=== PATIENT | female | born 1985 | race African-American/Black ===

== ENCOUNTER 2017-03-07 19:49 | Day surgery (SDC) | payer OTHER ==
[2017-03-07 20:14] VITALS: BMI 29.2
[2017-03-07] MEDS ORDERED: SODIUM CHLORIDE 0.9% 1000 ML INFUS.BAG IV ONE (21:28)
--- NOTE | 2017-03-07 21:38 | PDOC ---
History of Present Illness - General Chief Complaint: Vaginal Bleeding Stated Complaint: VAGINAL BLEEDING(11 WEEKS) PREG History Source: Patient Exam Limitations: No Limitations - History of Present Illness Initial Comments: 03/07/17 21:30 Patient is a 31 year old female with who is 10 weeks 5 days by LMP c/o vaginal bleeding and lower abd crampy since this afternoon. States she was upstate at [facility] when the symptoms started EMS was called but she RME because she was too far from home. While on the way she bleed through 5 diapers and was started to feel weak and dizzy and so she stopped at this hospital for care. She has not has any OBS care for this , no US. States having a lot of lower abd crampy pain 03/15. PMD: none PSHX; left oopharectomy ALL: gentamicin' GENERAL/CONSTITUTIONAL: [No fever or chills. No weakness. No weight change.] HEAD, EYES, EARS, NOSE AND THROAT: [No change in vision. No ear pain or discharge. No sore throat.] CARDIOVASCULAR: [No chest pain or shortness of breath.] RESPIRATORY: [No cough, wheezing, or hemoptysis.] GASTROINTESTINAL: [No nausea, vomiting, diarrhea or constipation. No rectal bleeding.] GENITOURINARY: [No dysuria, frequency, or change in urination.] MUSCULOSKELETAL: [No joint or muscle swelling or pain. No neck or back pain.] SKIN AND BREASTS: [No rash or easy bruising.] NEUROLOGIC: [No headache, vertigo, loss of consciousness, or loss of sensation.] PSYCHIATRIC: [No depression or anxiety.] ENDOCRINE: [No increased thirst. No abnormal weight change.] HEMATOLOGIC/LYMPHATIC: [No anemia, easy bleeding, or history of blood clots.] ALLERGIC/IMMUNOLOGIC: [No hives or skin allergy. No latex allergy.] GENERAL: [The patient is awake, alert, and fully oriented, in no acute distress. ] HEAD: [Normal with no signs of trauma.] EYES: [Pupils equal, round and reactive to light, extraocular movements intact, sclera anicteric, conjunctiva pale. ENT: [Ears normal, nares patent, oropharynx clear without exudates. Moist mucous membranes.] NECK: [Normal range of motion, supple without lymphadenopathy, JVD, or masses.] LUNGS: [Breath sounds equal, clear to auscultation bilaterally. No wheezes, and no crackles.] HEART: [Regular rate and rhythm, normal S1 and S2 without murmur, rub.] ABDOMEN: [Soft, (+) tenderness in the lower abd, normoactive bowel sounds. No guarding, no rebound. No masses. PELVIC: normal external genitalia, (+) bleed (+) clots in the vault, 2.5 cm open os EXTREMITIES: [Normal range of motion, no edema. No clubbing or cyanosis. No cords, erythema, or tenderness.] NEUROLOGICAL: [Cranial nerves II through XII grossly intact. Normal speech, normal gait.] PSYCH: [Normal mood, normal affect.] SKIN: [Warm, Dry, (+) pallor, normal turgor, no rashes or lesions noted.] Past History - Past Medical History Allergies/Adverse Reactions: Allergies Allergy/AdvReac Type Severity Reaction Status Date / Time gentamicin Allergy Verified 03/07/17 20:10 Home Medications: Ambulatory Orders NK [No Known Home Medication] 03/07/17 - Psycho/Social/Smoking Cessation Hx Suicidal Ideation: No Smoking History: Former smoker Have you smoked in the past 12 months: Yes If you are a former smoker, when did you quit?: 4 months Information on smoking cessation initiated: No Hx Alcohol Use: No Drug/Substance Use Hx: No *Physical Exam - Vital Signs Last Vital Signs Temp Pulse Resp BP Pulse Ox 98.6 F 71 18 110/83 98 03/07/17 20:10 03/07/17 20:10 03/07/17 20:10 03/07/17 20:10 03/07/17 20:10 ED Treatment Course - LABORATORY CBC & Chemistry Diagram: 03/08/17 01:35 03/07/17 21:30 Medical Decision Making - Medical Decision Making 03/07/17 23:05 Patient is a 31 year old female with who is 10 weeks 5 days by LMP c/o vaginal bleeding and lower abd crampy since this afternoon. She 10 weeks 5 days but has had any OBS care for this . will do US pelvic labs, IVF reassess. 03/07/17 23:48 Patient states had a diaper full of clots in the ED consulted MINERAL ENGINEER Dr. Landeros while waiting for offical US. recommed to give pitocin 20 units in 1 Liter IVF and given Methergine 0.2 IM 03/08/17 00:15 Patient Name: Kandis Maynard This is a preliminary report by imaging water pollution specialist Exam: Transabdominal and endovaginal sonogram and duplex sonography Images: 31 Clinical indication: Vaginal bleeding. Beta-hCG 9085. Status post left oopherectormy. Findings: The uterus is anteverted and measures 8.7 x 4.3 x 5.1 cm on endovaginal images. Nabothian cysts are noted in the cervix. No IUP seen. The right ovary measures 3.5 x 2 x 3.3 cm contains follicles and demonstrates normal arterial flow on color Doppler images. Prominent vessels are noted in the ventral myometrium. The left ovary is not visualized. Impression: Prominent vessels in the ventral myometrium. Otherwise normal appearance of the uterus. No IUP. Normal appearance of the right ovary with normal vascular flow. No adnexal mass or free fluid seen. These findings suggest failed . THIS DOCUMENT HAS BEEN ELECTRONICALLY SIGNED Gamal Mckee M.D. 03/08/2017 00: 11 SAMIA Rosas Please call Imaging Cloth Stock Sorter [phone] ([phone]) with questions will give pain meds Morphine 4 mg IV 0638 re-exam patient os open 2 cm with clots in the vault, blood in the diaper. Nurse states she changed a diaper when she hung up pitocin. case d/w with Dr. Landeros who states that the patient can be discharged with Methergine 0.2mg TID x 3 days, give Ancef 1 gm IV but no antibiotics will repeat the cbc if dropped significantly will hold the patient over for MINERAL ENGINEER. will given Methergine 0.2mg IM Ancef 1 gm IV 03/08/17 06:48 Endorsed to LAUREN Comer pending CBC and reconsult MINERAL ENGINEER if needed. *DC/Admit/Observation/Transfer Diagnosis at time of Disposition: Vaginal bleeding, Complete - Discharge Dispostion Condition at time of disposition: Stable
[2017-03-07 21:46] LABS: BASOPHIL 0.3 % (0-2.0); EOSINOPHIL 0.4 % (0-4.5); MCH 29.5 pg (25.7-33.7); MCHC 32.7 g/dl (32.0-36.0); MEAN CELL VOLUME 90.2 fl (80-96); MEAN PLT VOLUME 9.3 fl (7.5-11.1); NEUTROPHILS 82.5 % (42.8-82.8); PLATELET COUNT 201 K/MM3 (134-434); RDW 13.6 % (11.6-15.6); WHITE BLOOD COUNT 11.2 K/mm3 (4.0-10.0)
[2017-03-07 22:01] LABS: INR 1.13 (0.82-1.09); PROTHROMBIN TIME (PATIENT) 12.5 SEC (9.98-11.88)
[2017-03-07 22:11] LABS: ALBUMIN 3.7 g/dl (3.4-5.0); ANION GAP 12 (8-16); BILIRUBIN,TOTAL 0.2 mg/dL (0.2-1.0); CALCIUM 8.9 mg/dL (8.5-10.1); CO2 21 mmol/L (21-32); CREATININE 0.7 mg/dL (0.55-1.02); GLUCOSE,RANDOM 104 mg/dL (74-106); SGOT/AST 10 U/L (15-37); SGPT/ALT 19 U/L (12-78); TOT PROT 6.7 g/dl (6.4-8.2)
--- NOTE | 2017-03-07 22:12 | PDOC ---
*Physical Exam - Vital Signs Last Vital Signs Temp Pulse Resp BP Pulse Ox 98.6 F 71 18 110/83 98 03/07/17 20:10 03/07/17 20:10 03/07/17 20:10 03/07/17 20:10 03/07/17 20:10 - Physical Exam General Appearance: Yes: Appropriately Dressed Respiratory/Chest: positive: Chest Tender, Lungs Clear, Normal Breath Sounds Cardiovascular: positive: Regular Rhythm, Regular Rate, S1, S2. negative: Edema Gastrointestinal/Abdominal: positive: Normal Bowel Sounds, Tender (suprapubic ttp), Flat, Soft Musculoskeletal: positive: Normal Inspection. negative: CVA Tenderness Integumentary: positive: Normal Color, Dry, Warm Neurologic: positive: Fully Oriented, Alert, Normal Mood/Affect ED Treatment Course - LABORATORY CBC & Chemistry Diagram: 03/07/17 21:30 03/07/17 21:30 - ADDITIONAL ORDERS Additional order review: Laboratory Results 03/07/17 21:30 INR 1.13 03/07/17 21:30 RBC 4.02 MCV 90.2 MCHC 32.7 RDW 13.6 MPV 9.3 Neutrophils % 82.5 Lymphocytes % 12.8 Monocytes % 4.0 Eosinophils % 0.4 Basophils % 0.3 - Medications Given in the ED: ED Medications Discontinued Medications Generic Name Dose Route Start Last Admin Trade Name Brittny PRN Reason Stop Dose Admin Sodium Chloride 1,000 ml 03/07/17 21:28 03/07/17 21:39 Normal Saline - IV 03/07/17 21:29 1,000 ml ONCE ONE Administration Medical Decision Making - Medical Decision Making 03/07/17 22:09 31 yo F at 10 weeks plus few days here wtih c/o vaginal bleeding and cramping. bleeding heavier than a period. also feeling lightheaded. no other complaints. on exam pt awake alert . lungs clear. heart regular. abd soft mild suprapubic tenderness.skin warm and dry. plan r/o miscarriage vs. ectopic. plan tvus. labs. tvus. pt seen and examined, in conjunction with LAUREN Sandoval, agree with assessment and plan. cirilli
[2017-03-07 22:27] LABS: ALK PHOS 79 U/L (45-117)
[2017-03-07] MEDS ORDERED: METHYLERGONOVINE MALEATE 0.2 MG/1 ML AMP IM ONE (23:43)
[2017-03-07] MEDS ORDERED: LACTATED RINGERS SOLUTION 1,000 ML IV STA (23:46)
[2017-03-08] MEDS ORDERED: OXYTOCIN 10 UNITS/ML VIAL ONE ×2 (00:05→16:31)
[2017-03-08] MEDS ORDERED: METHYLERGONOVINE MALEATE 0.2 MG/1 ML AMP ONE ×2 (00:06→06:43)
[2017-03-08] MEDS ORDERED: KETOROLAC TROMETHAMINE 30 MG/1 ML VIAL IVPUSH ONE (00:16)
[2017-03-08] MEDS: OXYTOCIN 10 UNIT/ML 10ML MDV IV ONE ×2 (00:40→16:00)
[2017-03-08] MEDS ORDERED: KETOROLAC TROMETHAMINE 30 MG/1 ML VIAL ONE (00:41)
[2017-03-08 01:43] LABS: MCHC 32.4 g/dl (32.0-36.0); MEAN CELL VOLUME 89.4 fl (80-96); MEAN PLT VOLUME 8.7 fl (7.5-11.1); PLATELET COUNT 180 K/MM3 (134-434); RDW 13.8 % (11.6-15.6); WHITE BLOOD COUNT 13.4 K/mm3 (4.0-10.0)
[2017-03-08] MEDS ORDERED: morphine CARPU-JECT 4 MG/1 ML DISP.SYRIN IVPUSH ONE ×2 (02:23→13:00)
[2017-03-08] MEDS ORDERED: ONDANSETRON 4 MG/2 ML VIAL IVPUSH ONE (02:23)
[2017-03-08] MEDS ORDERED: morphine CARPU-JECT 4 MG/1 ML DISP.SYRIN ONE ×2 (02:27→13:01)
[2017-03-08] MEDS ORDERED: ONDANSETRON 4 MG/2 ML VIAL ONE (02:27)
[2017-03-08] MEDS ORDERED: METHYLERGONOVINE MALEATE 0.2 MG/1 ML AMP IM ONE (06:42)
[2017-03-08] MEDS ORDERED: CEFAZOLIN 1 GM in DEXTROSE 5%-WATER - 50 ML IVPB ONE (06:47)
[2017-03-08] MEDS ORDERED: CEFAZOLIN (PRE-DOCKED) 50 ML IVPB ONE (06:50)
[2017-03-08 08:27] LABS: MCH 29.9 pg (25.7-33.7); MCHC 33.7 g/dl (32.0-36.0); MEAN CELL VOLUME 88.8 fl (80-96); MEAN PLT VOLUME 9.3 fl (7.5-11.1); PLATELET COUNT 167 K/MM3 (134-434); WHITE BLOOD COUNT 13.5 K/mm3 (4.0-10.0)
[2017-03-08] MEDS ORDERED: SODIUM CHLORIDE 1,000 ML IV STA (08:57)
[2017-03-08] MEDS: LORazepam 1 MG TABLET PO ONE ×2 (09:13→09:15)
--- NOTE | 2017-03-08 09:21 | PDOC ---
*Physical Exam - Vital Signs Last Vital Signs Temp Pulse Resp BP Pulse Ox 98.2 F 78 20 94/53 98 03/08/17 07:58 03/08/17 07:58 03/08/17 07:58 03/08/17 09:13 03/08/17 07:58 - Physical Exam General Appearance: Yes: Appropriately Dressed. No: Apparent Distress HEENT: positive: Normal Voice Neck: positive: Supple Respiratory/Chest: negative: Respiratory Distress Female Pelvic Exam: positive: other Gastrointestinal/Abdominal: positive: Soft. negative: Tender Extremity: positive: Normal Inspection Integumentary: positive: Dry, Warm Neurologic: positive: Fully Oriented, Alert, Normal Mood/Affect ED Treatment Course - LABORATORY CBC & Chemistry Diagram: 03/08/17 10:52 03/07/17 21:30 - ADDITIONAL ORDERS Additional order review: Laboratory Results 03/07/17 03/07/17 03/07/17 21:30 21:30 21:30 INR 1.13 Sodium 141 Potassium 4.2 Chloride 108 H Carbon Dioxide 21 Anion Gap 12 BUN 27 H Creatinine 0.7 Creat Clearance w eGFR > 60 Random Glucose 104 Calcium 8.9 Total Bilirubin 0.2 AST 10 L ALT 19 Alkaline Phosphatase 79 Total Protein 6.7 Albumin 3.7 Beta HCG, Quant 9085.5 Blood Type O POSITIVE Antibody Screen Negative 03/08/17 03/08/17 03/07/17 07:30 01:35 21:30 RBC 2.98 L 3.34 L 4.02 MCV 88.8 89.4 90.2 MCHC 33.7 32.4 32.7 RDW 13.0 13.8 13.6 MPV 9.3 8.7 9.3 Neutrophils % 82.5 Lymphocytes % 12.8 Monocytes % 4.0 Eosinophils % 0.4 Basophils % 0.3 - Medications Given in the ED: ED Medications Discontinued Medications Generic Name Dose Route Start Last Admin Trade Name Freq PRN Reason Stop Dose Admin Lactated Ringer's 1,000 mls @ 1,000 mls/hr 03/07/17 23:46 03/08/17 00:40 Lactated Ringers Solution IV 03/08/17 00:45 1,000 mls/hr ONCE STA Administration Cefazolin Sodium 1 gm/ 50 mls @ 100 mls/hr 03/08/17 06:47 03/08/17 07:06 Dextrose IVPB 03/08/17 07:16 100 mls/hr ONCE ONE Administration Ketorolac Tromethamine 30 mg 03/08/17 00:16 03/08/17 00:44 Toradol Injection - IVPUSH 03/08/17 00:17 30 mg ONCE ONE Administration Lorazepam 1 mg 03/08/17 08:58 03/08/17 09:15 Ativan - PO 03/08/17 08:59 Not Given ONCE ONE Methylergonovine Maleate 0.2 mg 03/07/17 23:43 03/08/17 00:14 Methergine Injection - IM 03/07/17 23:44 0.2 mg ONCE ONE Administration Methylergonovine Maleate 0.2 mg 03/08/17 06:42 03/08/17 07:06 Methergine Injection - IM 03/08/17 06:43 0.2 mg ONCE ONE Administration Morphine Sulfate 4 mg 03/08/17 02:23 03/08/17 02:40 Morphine Injection - IVPUSH 03/08/17 02:24 4 mg ONCE ONE Administration Ondansetron HCl 4 mg 03/08/17 02:23 03/08/17 02:40 Zofran Injection IVPUSH 03/08/17 02:24 4 mg ONCE ONE Administration Oxytocin 20 unit 03/07/17 23:45 03/08/17 00:40 Pitocin IV 03/07/17 23:46 20 unit ONCE ONE Administration Sodium Chloride 1,000 ml 03/07/17 21:28 03/07/17 21:39 Normal Saline - IV 03/07/17 21:29 1,000 ml ONCE ONE Administration Medical Decision Making - Medical Decision Making 03/08/17 07:20 Pt signed out to me a 7am Patient is a 31-year-old female, with multiple spontaneous ABs is in the past, presents with first trimester bleeding. Beta over 9K with open os on exam. Ultrasound negative for IUP or adnexal mass. Patient continues to bleed significantly in EDc with a 2 point drop in hemoglobin from 11.9 to 9.7 Type and screen sent. IV fluid in progress. SENIOR ACCOUNTANT was consulted earlier and recommended Methergine, Pitocin and 1 dose of Ancef. Will continue to do serial CBC in ED. 03/08/17 09:00 Hgb now 8.9 w/ BP now 94/53. IVF in progress. Will recontact SENIOR ACCOUNTANT stat 03/08/17 10:01 SENIOR ACCOUNTANT paged but no call back after about 20 minutes. Pt remains well igor w/ improvement in BP to 108/55 at this time. Pt states bleeding has since improved. Next CBC scheduled at 11am 03/08/17 10:02 03/08/17 10:04 03/08/17 11:01 At this time we are still waiting to hear from Dr Amezquita. Pt remains stable but now c/o lower abd pain per ED nurse. Rpt CBC now pending. 03/08/17 11:33 As per L&D staff Dr. Maynard covering for Alirio. Spoke to Andrea Valenzuela, who states he found out this a.m. that he was covering for Dr. Amezquita. MD Informed of case. Recommends giving patient another dose of Pitocin at this time and will call me back to discuss disposition but patient most likely will be admitted to L&D 03/08/17 11:40 Dr Maynard called back, states Dr Webb, who is currently in the OR, will come evaluate pt in the ED 03/08/17 13:10 Dr Webb at bedside, states pt to be admitted for D&C in OR now 03/08/17 13:10 *DC/Admit/Observation/Transfer Diagnosis at time of Disposition: Vaginal bleeding, Complete - Discharge Dispostion Disposition: HOME Condition at time of disposition: Stable Admit: Yes
[2017-03-08] MEDS ORDERED: traMADol HCL 50 MG TABLET PO ONE (11:02)
[2017-03-08 11:04] LABS: BASOPHIL 0.3 % (0-2.0); EOSINOPHIL 0.2 % (0-4.5); MCH 29.9 pg (25.7-33.7); MCHC 33.5 g/dl (32.0-36.0); MEAN CELL VOLUME 89.3 fl (80-96); NEUTROPHILS 78.8 % (42.8-82.8); PLATELET COUNT 169 K/MM3 (134-434); RDW 13.1 % (11.6-15.6); WHITE BLOOD COUNT 15.1 K/mm3 (4.0-10.0)
[2017-03-08] MEDS ORDERED: traMADol HCL 50 MG TABLET ONE (11:08)
[2017-03-08] MEDS ORDERED: OXYTOCIN 20 UNITS in 0.9% NS 1000 ML INFUS.BAG IV ONE ×3 (11:25→12:19)
[2017-03-08 11:26] LABS: INR 1.19 (0.82-1.09); PROTHROMBIN TIME (PATIENT) 13.1 SEC (9.98-11.88)
--- NOTE | 2017-03-08 13:58 | PDOC ---
*Physical Exam - Vital Signs Last Vital Signs Temp Pulse Resp BP Pulse Ox 98.0 F 81 18 108/59 95 03/08/17 13:48 03/08/17 13:48 03/08/17 13:48 03/08/17 13:48 03/08/17 13:48 ED Treatment Course - LABORATORY CBC & Chemistry Diagram: 03/08/17 10:52 03/07/17 21:30 - ADDITIONAL ORDERS Additional order review: Laboratory Results 03/08/17 03/08/17 10:52 10:52 INR 1.19 H Blood Type O POSITIVE Antibody Screen Negative 03/08/17 03/08/17 03/08/17 10:52 07:30 01:35 RBC 2.83 L 2.98 L 3.34 L MCV 89.3 88.8 89.4 MCHC 33.5 33.7 32.4 RDW 13.1 13.0 13.8 MPV 9.0 9.3 8.7 Neutrophils % 78.8 Lymphocytes % 16.9 D Monocytes % 3.8 Eosinophils % 0.2 Basophils % 0.3 03/07/17 21:30 RBC 4.02 MCV 90.2 MCHC 32.7 RDW 13.6 MPV 9.3 Neutrophils % 82.5 Lymphocytes % 12.8 Monocytes % 4.0 Eosinophils % 0.4 Basophils % 0.3 - Medications Given in the ED: ED Medications Discontinued Medications Generic Name Dose Route Start Last Admin Trade Name Freq PRN Reason Stop Dose Admin Lactated Ringer's 1,000 mls @ 1,000 mls/hr 03/07/17 23:46 03/08/17 00:40 Lactated Ringers Solution IV 03/08/17 00:45 1,000 mls/hr ONCE STA Administration Cefazolin Sodium 1 gm/ 50 mls @ 100 mls/hr 03/08/17 06:47 03/08/17 07:06 Dextrose IVPB 03/08/17 07:16 100 mls/hr ONCE ONE Administration Sodium Chloride 1,000 mls @ 1,000 mls/hr 03/08/17 08:57 03/08/17 09:13 Normal Saline - IV 03/08/17 09:56 1,000 mls/hr ASDIR STA Administration Ketorolac Tromethamine 30 mg 03/08/17 00:16 03/08/17 00:44 Toradol Injection - IVPUSH 03/08/17 00:17 30 mg ONCE ONE Administration Lorazepam 1 mg 03/08/17 08:58 03/08/17 09:15 Ativan - PO 03/08/17 08:59 Not Given ONCE ONE Methylergonovine Maleate 0.2 mg 03/07/17 23:43 03/08/17 00:14 Methergine Injection - IM 03/07/17 23:44 0.2 mg ONCE ONE Administration Methylergonovine Maleate 0.2 mg 03/08/17 06:42 03/08/17 07:06 Methergine Injection - IM 03/08/17 06:43 0.2 mg ONCE ONE Administration Morphine Sulfate 4 mg 03/08/17 02:23 03/08/17 02:40 Morphine Injection - IVPUSH 03/08/17 02:24 4 mg ONCE ONE Administration Morphine Sulfate 4 mg 03/08/17 13:00 03/08/17 13:01 Morphine Injection - IVPUSH 03/08/17 13:01 4 mg ONCE ONE Administration Ondansetron HCl 4 mg 03/08/17 02:23 03/08/17 02:40 Zofran Injection IVPUSH 03/08/17 02:24 4 mg ONCE ONE Administration Oxytocin 20 unit 03/07/17 23:45 03/08/17 00:40 Pitocin IV 03/07/17 23:46 20 unit ONCE ONE Administration Oxytocin/Sodium Chloride 20 unit 03/08/17 11:25 03/08/17 12:22 Normal Saline+20 Units Oxytocin - IV 03/08/17 11:26 Not Given ONCE ONE Oxytocin/Sodium Chloride 20 unit 03/08/17 11:39 03/08/17 12:23 Normal Saline+20 Units Oxytocin - IV 03/08/17 11:40 20 unit ONCE ONE Administration Oxytocin/Sodium Chloride 20 unit 03/08/17 12:19 03/08/17 12:23 Normal Saline+20 Units Oxytocin - IV 03/08/17 12:20 Not Given ONCE ONE Sodium Chloride 1,000 ml 03/07/17 21:28 03/07/17 21:39 Normal Saline - IV 03/07/17 21:29 1,000 ml ONCE ONE Administration Tramadol HCl 50 mg 03/08/17 11:02 03/08/17 11:05 Ultram - PO 03/08/17 11:03 50 mg ONCE ONE Administration *DC/Admit/Observation/Transfer Diagnosis at time of Disposition: Vaginal bleeding, Complete - Discharge Dispostion Disposition: HOME Condition at time of disposition: Stable Admit: Yes Decision to Admit order Date/Time: Decision to Admit Order Category Date Time Status Decision to Admit to Hospital Routine Admission 03/08/17 13:09 Active
--- NOTE | 2017-03-08 14:45 | HP ---
Past Medical History - Primary Care Physician PCP:: Samantha Landeros - Admission Chief Complaint: 31 yrs , 10 .5 weeks passed large blood clots & cramps History of Present Illness: no care . pt whlile waiting in ER also bleeding continuously .inspite of IV pitocin & Methergine, Blood count has dropped . pelvic us was reported ut 8.7x4.5 cm n o iup . BHCG 9085 MIU History Source: Patient - Past Medical History TAX ATTORNEY: No: Migraine, Seizure Pulmonary: Yes: Asthma ...: 5 ...Para: 1 ( 01/02/2015 ) ...Term: 1 ...Spon : 2 (h/o blighted ovum once ) ...Induced : 1 (2015 ) ...LMP: 12/22/16 ... Weeks Gestation by Dates: 10.5 Heme/Onc: Yes: Anemia - Past Surgical History Past Surgical History: Yes: Oopherectomy (10/2015 Laproscopic Lt Oopherectomy due to infection in 2015 , in [facility]) Hx Myomectomy: No Hx Transabdominal Cerclage: No - Smoking History Smoking history: Former smoker Have you smoked in the past 12 months: Yes If you are a former smoker, when did you quit?: 4 months - Alcohol/Substance Use Hx Alcohol Use: No History of Substance Use: reports: Marijuana - Social History History of Recent Travel: No Home Medications - Allergies Allergies/Adverse Reactions: Allergies Allergy/AdvReac Type Severity Reaction Status Date / Time gentamicin Allergy Verified 03/07/17 20:10 - Home Medications Home Medications: Ambulatory Orders NK [No Known Home Medication] 03/07/17 Physical Exam-MEDICAL TRANSCRIPTION Vital Signs: Vital Signs Temperature 98.0 F 03/08/17 13:48 Pulse Rate 81 03/08/17 13:48 Respiratory Rate 18 03/08/17 13:48 Blood Pressure 108/59 03/08/17 13:48 O2 Sat by Pulse Oximetry (%) 95 03/08/17 13:48 Constitutional: Yes: Moderate Distress, Pallor Eyes: Yes: WNL HENT: Yes: WNL, Normocephalic Neck: Yes: WNL Cardiovascular: Yes: WNL, Regular Rate and Rhythm Respiratory: Yes: WNL Gastrointestinal: Yes: WNL Renal/: Yes: External Genitalia: Yes: Normal Internal Exam Deferred: Yes Vaginal Exam: Yes: Bleeding (with clots) Cervix: Yes: Other (os open POC & blood clots at os) Uterus: Yes: Anteverted, Enlarged (8-10 weeks), Soft Adnexa: Normal: Bilateral, Not Palpable: Bilateral Breast(s): Yes: WNL Musculoskeletal: Yes: WNL Extremities: Yes: WNL. No: Calf Tenderness Edema: No Neurological: Yes: WNL ...Motor Strength: WNL Psychiatric: Yes: WNL, Alert, Oriented Labs: CBC, BMP 03/08/17 10:52 03/07/17 21:30 Laboratory Tests 03/07/17 03/08/17 03/08/17 21:30 01:35 07:30 WBC 11.2 H 13.4 H 13.5 H Hgb 11.9 9.7 L D 8.9 L Hct 36.3 29.9 L D 26.5 L Problem List - Problem (1) Spontaneous , incomplete Code(s): O03.4 - INCOMPLETE SPONTANEOUS WITHOUT COMPLICATION (2) with 10 completed weeks gestation Code(s): Z3A.10 - 10 WEEKS GESTATION OF (3) Anemia Code(s): D64.9 - ANEMIA, UNSPECIFIED (4) Acute blood loss anemia Code(s): D62 - ACUTE POSTHEMORRHAGIC ANEMIA Assessment/Plan 30 yrs . 10.5 weeks Sp incomplete ab, with hemorrhage anemia Plan ct IV pitocin Im Methergine suction D&C
[2017-03-08] MEDS ORDERED: LIDOCAINE HCL/PF 2% SDV 5ML VIAL ONE (15:32)
[2017-03-08] MEDS ORDERED: PROPOFOL 20 ML ONE (15:32)
[2017-03-08] MEDS ORDERED: MIDAZOLAM HCL 2 MG/2 ML SINGLE DOSE VIAL ONE ×2 (15:32)
[2017-03-08] MEDS ORDERED: oxyCODONE HCL 5 MG TABLET PO PRN (15:55)
[2017-03-08] MEDS ORDERED: ONDANSETRON 4 MG/2 ML VIAL IVPUSH PRN (15:55)
[2017-03-08] MEDS ORDERED: ACETAMINOPHEN 325 MG TABLET (FP) PO PRN (16:02)
[2017-03-08] MEDS ORDERED: IBUPROFEN 400 MG TABLET (FP) PO PRN (16:02)
--- NOTE | 2017-03-08 16:09 | OP ---
Operative Note - Note: Operative Date: 03/08/17 Pre-Operative Diagnosis: sp incomplete Operation: suction evacuation curettage Findings: ut 8 weeks size, os open uuterocervical length 9 cm os open POC removed , #10 curved canula used to aspirate uterine contents . curettage done Surgeon: Samantha Landeros Anesthesiologist/METAL PATTERNMAKER: John Holbrook Anesthesia: General Specimens Removed: uterine contents Estimated Blood Loss (mls): 30 Blood Volume Replaced (mls): 500 (iv pitocin in 1000 ml saline ) Operative Report Dictated: Yes
--- NOTE | 2017-03-08 17:24 | PN ---
Progress Note (short form) - Note Progress Note: pt doing fine bleeding minimal Selected Entries 03/08/17 15:21 Temperature 98.1 F Pulse Rate [ 64 Apical] Blood Pressure 106/68 [Right Arm] post op stable due to social issuses pt is unable to leave hosp tonight hence satellite admission is done she will be discharged in AM Problem List - Problems (1) Spontaneous , incomplete Code(s): O03.4 - INCOMPLETE SPONTANEOUS WITHOUT COMPLICATION (2) with 10 completed weeks gestation Code(s): Z3A.10 - 10 WEEKS GESTATION OF (3) Anemia Code(s): D64.9 - ANEMIA, UNSPECIFIED (4) Acute blood loss anemia Code(s): D62 - ACUTE POSTHEMORRHAGIC ANEMIA
[2017-03-08] MEDS: D5W-LR W/ 20 UNITS OXYTOCIN 1,000 ML IV SCH (23:09)
[2017-03-09] MEDS: D5W-LR W/ 20 UNITS OXYTOCIN 1,000 ML IV SCH (03:50)
[2017-03-09 09:00] VITALS: BP 108/45; PULSE 96; TEMP 98.1
--- NOTE | 2017-03-11 12:52 | PATH ---
Surgical Pathology Report Patient Name: SARAH FREED Med. Rec. #: [id number] /Age/Gender: 1985 (Age: 31) / F Account: [id number] Location: AMBULATORY SURG Taken: 03/08/2017 Received: 03/10/2017 Reported: 03/11/2017 Physicians: Samantha Landeros M.D. Specimen(s) Received UTERINE CONTENTS Clinical History 10.5 weeks hemorrhage, status post incomplete Final Diagnosis UTERINE CONTENTS: NO SOMATIC TISSUE IDENTIFIED. CHORIONIC VILLI PRESENT. FRAGMENTS OF DECIDUA Electronically Signed Justo Raya M.D. Gross Description Received in formalin, labeled with the patient's name and indicated on the requisition to be uterine contents, is a 10.5 x 8.3 x 1.2 cm aggregate of morgan-brown soft tissue fragments admixed with blood clot. No definite villous tissue or somatic tissue is identified. A insurance account representative portion is submitted in 3 cassettes /03/10/201703/10/2017
--- NOTE | 2017-03-21 16:29 | OP ---
DATE OF OPERATION: 03/08/2017 PREOPERATIVE DIAGNOSIS: Spontaneous incomplete with hemorrhage. POSTOPERATIVE DIAGNOSIS: Spontaneous incomplete with hemorrhage. OPERATION DONE: Suction evacuation and curettage. SURGEON: Samantha Landeros MD ANESTHESIOLOGIST: John Holbrook MD FINDINGS: This is a 31-year-old, 5, para 1-0-3-1, who has 10.5 weeks gestation, presented in the emergency room with heavy bleeding with blood clots. IV Pitocin and Methergine were given. Patient continued to bleed, and some products were seen at the os, which could not be completely removed; so, patient was taken to the operating room. DESCRIPTION OF PROCEDURE: Patient was taken to the operating room table. General anesthesia was given. Lithotomy position was given. Pubis, perineum, and vagina were painted with Betadine, draped in usual manner. Pelvic examination was done. Uterus was anteverted, 10 weeks size. Cervical os was open and adnexa were not palpable and some products were felt at the os. Weighted speculum was put. Anterior lip of the cervix held with a single-tooth tenaculum. With the ring forceps, the uterine contents were removed. Suction cannula was introduced, and the uterine cavity was emptied by suctioning. Then, curettage was done. Normal tissue was obtained. The tissue obtained in the emergency room and in the operating room altogether sent to the pathologist. Patient tolerated the procedure well, and she was transferred to the recovery room in stable condition. Estimated blood loss in the OR was 50 mL. Her blood type was O positive. Suction cannula number 10 was used. Alsion [id number] MTDD
== END 2017-03-09 11:48 | disposition home or self-care (01) ==
LOC: JER 19:49 → JASUSAT 03-08 13:09 → J5S 03-08 17:34 → JASUSAT 03-09 11:48
PROVIDERS: ATTEND Obstetrics & Gynecology
PROC: 3E0337Z Introduction of Electrolytic and Water Balance Substance into Peripheral Vein, Percutaneous Approach (ICD-10-PCS; principal; 2017-03-07)
PROC: 3E03329 Introduction of Other Anti-infective into Peripheral Vein, Percutaneous Approach (ICD-10-PCS; 2017-03-07)
PROC: 3E033NZ Introduction of Analgesics, Hypnotics, Sedatives into Peripheral Vein, Percutaneous Approach (ICD-10-PCS; 2017-03-07)
PROC: 3E033GC Introduction of Other Therapeutic Substance into Peripheral Vein, Percutaneous Approach (ICD-10-PCS; 2017-03-07)
PROC: 3E0333Z Introduction of Anti-inflammatory into Peripheral Vein, Percutaneous Approach (ICD-10-PCS; 2017-03-07)
PROC: 3E023GC Introduction of Other Therapeutic Substance into Muscle, Percutaneous Approach (ICD-10-PCS; 2017-03-07)
PROC: 3E023GC Introduction of Other Therapeutic Substance into Muscle, Percutaneous Approach (ICD-10-PCS; 2017-03-07)
DX: O03.9 Complete or unspecified spontaneous abortion without complication (principal); Z3A.10 10 weeks gestation of pregnancy
CPT/HCPCS: 36415; 76801-TC; 76817-TC; 80053; 84702; 85025; 85027; 85610; 86850; 86900; 86901; 88305-TC; 94760; 96361; 96365; 96372; 96374; 96375; 99285-25